=== PATIENT | female | born 1965 | race African-American/Black ===

== ENCOUNTER 2020-05-01 00:16 | Emergency (ER) | payer MEDICAID, OTHER ==
[~2020-05-01] VITALS: Ht 160 cm; Wt 65.9 kg
[~2020-05-01 00:16] MED LIST: ASPI-556 PO; EFAV1TAB2; EFAV1TAB2 PO; FENO145T PO; FLUO20CA36 PO; FLUT1DIS4 IH; GABA-1181 PO; METF1000 PO; PIOG45TA4 PO; QUET150T2 PO
[2020-05-01 02:02] VITALS: BP 161/94
[2020-05-01 02:11] LABS: BASOPHILS % (AUTO) 0.9 % (0.0-2.0); EOSINOPHILS % (AUTO) 1.4 % (1.0-6.0); HEMATOCRIT 40.1 % (36-46); HEMOGLOBIN 13.3 g/dL (12.0-16.0); LYMPHOCYTES # (AUTO) 1.2 K/uL (1.0-4.8); LYMPHOCYTES % (AUTO) 27.4 % (22.0-44.0); MEAN CORPUSCULAR HEMOGLOBIN 30.1 pg (26.0-34.0); MEAN CORPUSCULAR HGB CONC 33.3 G/dL (31.0-37.0); MEAN CORPUSCULAR VOLUME 90 fL (80-100); MONOCYTES # (AUTO) 0.3 K/uL (0.1-1.0); MONOCYTES % (AUTO) 7.1 % (2.0-9.0); NEUTROPHILS # (AUTO) 2.7 K/uL (1.8-7.7); NEUTROPHILS % (AUTO) 63.2 % (40.0-70.0); PLATELET COUNT (AUTO) 234 K/uL (150-450); RED BLOOD CELL COUNT(AUTO) 4.44 MIL/uL (4.00-5.20); RED CELL DISTRIBUTION WIDTH 12.6 % (11.5-14.5)
[2020-05-01 02:19] LABS: ANION GAP 10 mmol/L (8-16); CALCIUM, TOTAL 8.9 mg/dL (8.8-10.5); CARBON DIOXIDE 26 mmol/L (22-29); CHLORIDE 106 mmol/L (98-107); CREATININE 1.07 mg/dL (0.60-1.30); GLOMERULAR FILTR. RATE CALC > 60 mL/min (>60); GLUCOSE,RANDOM 265 mg/dL (70-110); POTASSIUM 3.7 mmol/L (3.5-5.1); SODIUM SERUM 142 mmol/L (136-145); UREA NITROGEN, BLOOD 13 mg/dL (7-18)
[2020-05-01 02:25] LABS: ALANINE AMINOTRANSFERASE 25 U/L (12-78); ALBUMIN 3.4 g/dL (3.4-5.0); ALKALINE PHOSPHATASE 91 U/L (46-116); ASPARTATE AMINOTRANSFERASE 18 U/L (15-37); BILIRUBIN,TOTAL 0.4 mg/dL (0.1-1.0)
== END 2020-05-01 02:55 | disposition home or self-care (01) ==
LOC: EMS 00:18
DX: Z20.822 Contact with and (suspected) exposure to COVID-19 (principal); J45.909 Unspecified asthma, uncomplicated; E11.9 Type 2 diabetes mellitus without complications; F17.210 Nicotine dependence, cigarettes, uncomplicated; Z79.899 Other long term (current) drug therapy; Z79.82 Long term (current) use of aspirin
CPT/HCPCS: 36415; 80053; 82962; 85025; 99283; U0003

== ENCOUNTER 2020-12-11 10:45 | Observation (INO) | payer OTHER ==
[~2020-12-11] VITALS: Ht 160 cm; Wt 56.0 kg
[2020-12-11] MEDS ORDERED: PARO-38 PO (11:01)
[2020-12-11] MEDS ORDERED: SODIUM CHLORIDE 0.9% 1,000 ML IV ONE ×2 (11:15→15:00)
[2020-12-11 11:49] LABS: BASOPHILS % (AUTO) 1.2 % (0.0-2.0); EOSINOPHILS % (AUTO) 0.5 % (1.0-6.0); HEMATOCRIT 50.2 % (36-46); HEMOGLOBIN 15.9 g/dL (12.0-16.0); LYMPHOCYTES % (AUTO) 27.4 % (22.0-44.0); MEAN CORPUSCULAR HEMOGLOBIN 30.9 pg (26.0-34.0); MEAN CORPUSCULAR HGB CONC 31.7 G/dL (31.0-37.0); MEAN CORPUSCULAR VOLUME 98 fL (80-100); MONOCYTES # (AUTO) 0.4 K/uL (0.1-1.0); NEUTROPHILS # (AUTO) 2.1 K/uL (1.8-7.7); NEUTROPHILS % (AUTO) 60.9 % (40.0-70.0); PLATELET COUNT (AUTO) 194 K/uL (150-450); RED BLOOD CELL COUNT(AUTO) 5.15 MIL/uL (4.00-5.20); RED CELL DISTRIBUTION WIDTH 13.3 % (11.5-14.5)
[2020-12-11 12:06] LABS: COVID AG,FIA SOURCE NASOPHARYNGEAL
[2020-12-11 13:29] LABS: ANION GAP 3 mmol/L (8-16); CARBON DIOXIDE 29 mmol/L (22-29); CHLORIDE 94 mmol/L (98-107); CREATININE 1.25 mg/dL (0.60-1.30); GLOMERULAR FILTR. RATE CALC 54 mL/min (>60); POTASSIUM 4.6 mmol/L (3.5-5.1); SODIUM SERUM 126 mmol/L (136-145); UREA NITROGEN, BLOOD 10 mg/dL (7-18)
[2020-12-11 13:30] LABS: CALCIUM, TOTAL 8.7 mg/dL (8.8-10.5)
[2020-12-11 13:38] LABS: ALANINE AMINOTRANSFERASE 72 U/L (12-78); ALKALINE PHOSPHATASE 133 U/L (46-116); ASPARTATE AMINOTRANSFERASE 41 U/L (15-37); BILIRUBIN,TOTAL 0.4 mg/dL (0.1-1.0); CREATINE KINASE, TOTAL ONLY 64 U/L (26-192); HCG,QUANTITATIVE 6 mIU/mL (0-6); PHOSPHORUS 3.5 mg/dL (2.5-4.9); TOTAL PROTEIN, SERUM 6.8 g/dL (6.4-8.2)
[2020-12-11 13:45] LABS: GLUCOSE,RANDOM 778 mg/dL (70-110)
[2020-12-11] MEDS ORDERED: INSULIN REGULAR, HUMAN 100 UNITS/ML IVP ONE (14:00)
[2020-12-11] MEDS ORDERED: MAGNESIUM SULFATE 2 GM/WATER 50 ML IV ONE (14:00)
[2020-12-11 14:05] LABS: ACETONE,BLOOD NEGATIVE (NEGATIVE)
[2020-12-11] MEDS ORDERED: ACETAMINOPHEN 325 MG TABLET PO PRN ×2 (14:15→15:00)
[2020-12-11] MEDS ORDERED: 0.9% SODIUM CHLORIDE 10 ML SYRINGE IVP PRN (14:15)
[2020-12-11] MEDS ORDERED: ONDANSETRON HCL 4 MG/2 ML VIAL IVP PRN ×2 (14:15→15:00)
[2020-12-11 14:34] LABS: APPEARANCE,URINE CLEAR (CLEAR); BILIRUBIN,URINE NEGATIVE (NEGATIVE); GLUCOSE, URINE (UA) >=1000 mg/dL (NEGATIVE); KETONES,URINE NEGATIVE (NEGATIVE); LEUKOCYTE ESTERASE ,URINE NEGATIVE (NEGATIVE); NITRATE,URINE NEGATIVE (NEGATIVE); OCCULT BLOOD,URINE NEGATIVE (NEGATIVE); PH,URINE 6.5 (5.0-8.0); PROTEIN,URINE NEGATIVE (NEGATIVE); UROBILINOGEN,URINE 0.2 mg/dL (<=1.0)
[2020-12-11 14:39] LABS: AMPHET/METH SCREEN,URINE NEGATIVE (NEGATIVE); BARBITURATE SCREEN, URINE NEGATIVE (NEGATIVE); BENZODIAZEPINES SCREEN,URINE NEGATIVE (NEGATIVE); CANNABINOID SCREEN,URINE NEGATIVE (NEGATIVE); COCAINE SCREEN,URINE NEGATIVE (NEGATIVE); METHADONE SCREEN, URINE NEGATIVE (NEGATIVE); OPIATE SCREEN,URINE NEGATIVE (NEGATIVE)
[2020-12-11 14:40] LABS: PHENCYCLIDINE SCREEN,URINE NEGATIVE (NEGATIVE)
[2020-12-11 14:47] LABS: BACTERIA,URINE None Seen /HPF (None Seen); RBC,URINE None Seen /HPF (0-2); SQUAMOUS EPITHELIAL CELL,UR None Seen /LPF (None Seen); WBC,URINE None Seen /HPF (0-5)
[2020-12-11] MEDS ORDERED: MAGNESIUM HYDROXIDE SUSPENSION 30 ML UDCUP PO PRN (15:00)
[2020-12-11] MEDS ORDERED: MORPHINE SULFATE 2 MG/ML SYRINGE IVP PRN (15:00)
[2020-12-11] MEDS ORDERED: ZOLPIDEM TARTRATE 5 MG TABLET PO PRN (15:00)
[2020-12-11] MEDS ORDERED: HYDROCODONE/ACETAMINOPHEN 5-325 MG TABLET PO PRN (15:00)
[2020-12-11] MEDS ORDERED: BISACODYL 10 MG RECTAL RECTAL SUPPOSITORY PR PRN (15:00)
[2020-12-11] MEDS: HEPARIN SODIUM,PORCINE 5,000 UNITS/ML VIAL SQ SCH ×2 (15:04→23:57)
[2020-12-11 15:29] LABS: GLUCOMETER DEV NAME(LOC) ERT.5; GLUCOSE,POINT OF CARE 442 MG/DL (70-110)
[2020-12-11] MEDS ORDERED: DEXTROSE 50%-WATER 25 GM/50 ML SYRINGE IVP PRN (15:45)
[2020-12-11] MEDS ORDERED: INSULIN REGULAR, HUMAN 100 UNITS/ML SQ ONE (16:15)
[2020-12-11] MEDS: MetFORMIN HCL 500 MG TABLET PO SCH ×3 (17:30→19:01)
[2020-12-11 17:49] LABS: GLUCOSE,POINT OF CARE 462 MG/DL (70-110)
[2020-12-11 18:14] LABS: GLUCOMETER DEV NAME(LOC) ERT.5; GLUCOSE,POINT OF CARE 332 MG/DL (70-110)
[2020-12-11 18:49] VITALS: BP 140/90
[2020-12-11] MEDS: INSULIN LISPRO 100 UNITS/ML SQ PRN (18:59)
[2020-12-11 19:14] LABS: GLUCOMETER DEV NAME(LOC) 6S.1; GLUCOSE,POINT OF CARE 329 MG/DL (70-110)
[2020-12-11 19:50] VITALS: BP 141/96
[2020-12-11] MEDS: DOCUSATE SODIUM 100 MG CAPSULE PO SCH (20:18)
[2020-12-11] MEDS: QUEtiapine FUMARATE 50 MG ER TABLET PO SCH (20:19)
[2020-12-11] MEDS: FENOFIBRATE 48 MG TABLET PO SCH (20:19)
[2020-12-11] MEDS ORDERED: MAGNESIUM SULFATE 2 GM/WATER 50 ML IV PRN (20:45)
[2020-12-11] MEDS ORDERED: MAGNESIUM OXIDE 400 MG TABLET PO PRN (20:45)
[2020-12-11] MEDS ORDERED: MAGNESIUM SULFATE 4 GM/WATER 100 ML IV PRN (20:45)
[2020-12-11] MEDS ORDERED: PNEUMOCOCCAL VACCINE POLYVALENT 0.5 ML VIAL [PPSV23] IM. ONE (23:00)
[2020-12-12] MEDS: INSULIN LISPRO 100 UNITS/ML SQ PRN ×3 (05:13→20:02)
[2020-12-12 06:45] LABS: GLUCOMETER DEV NAME(LOC) 6S.1; GLUCOSE,POINT OF CARE 327 MG/DL (70-110)
[2020-12-12 06:45] LABS: GLUCOMETER DEV NAME(LOC) 6N.1; GLUCOSE,POINT OF CARE 438 MG/DL (70-110)
[2020-12-12 08:23] VITALS: BP 98/58
[2020-12-12] MEDS: PIOGLITAZONE HCL 45 MG TABLET PO SCH (08:29)
[2020-12-12] MEDS: PARoxetine HCL 20 MG TABLET PO SCH (08:29)
[2020-12-12] MEDS: GABAPENTIN 300 MG CAPSULE PO SCH (08:29)
[2020-12-12] MEDS: HEPARIN SODIUM,PORCINE 5,000 UNITS/ML VIAL SQ SCH ×3 (08:30→23:33)
[2020-12-12] MEDS: MetFORMIN HCL 500 MG TABLET PO SCH ×2 (08:30→17:22)
[2020-12-12] MEDS: PANTOPRAZOLE SODIUM 40 MG DR TABLET PO SCH (08:30)
[2020-12-12] MEDS: DOCUSATE SODIUM 100 MG CAPSULE PO SCH ×2 (08:30→20:01)
[2020-12-12] MEDS: ASPIRIN 81 MG DR TABLET PO SCH (08:30)
[2020-12-12] MEDS: TENOFOVIR PO SCH (09:34)
[2020-12-12] MEDS: EMTRICITAB PO SCH (09:34)
[2020-12-12] MEDS: EFAVIRENZ PO SCH (09:34)
[2020-12-12] MEDS ORDERED: INSULIN LISPRO 100 UNITS/ML SQ ONE (12:30)
[2020-12-12 13:33] LABS: GLUCOMETER DEV NAME(LOC) 6N.1; GLUCOSE,POINT OF CARE 446 MG/DL (70-110)
[2020-12-12 15:25] VITALS: BP 138/89
[2020-12-12 18:30] LABS: GLUCOMETER DEV NAME(LOC) 6N.1; GLUCOSE,POINT OF CARE 212 MG/DL (70-110)
[2020-12-12] MEDS: QUEtiapine FUMARATE 50 MG ER TABLET PO SCH (20:02)
[2020-12-12] MEDS: FENOFIBRATE 48 MG TABLET PO SCH (20:02)
[2020-12-12] MEDS: INSULIN GLARGINE,HUM.REC.ANLOG 100 UNITS/ML SQ SCH (20:03)
[2020-12-12 20:10] LABS: GLUCOMETER DEV NAME(LOC) 6S.1; GLUCOSE,POINT OF CARE 166 MG/DL (70-110)
[2020-12-12 20:20] VITALS: BP 154/85
[2020-12-13 05:06] VITALS: BP 139/98
[2020-12-13 05:50] LABS: GLUCOMETER DEV NAME(LOC) 6S.1; GLUCOSE,POINT OF CARE 233 MG/DL (70-110)
[2020-12-13] MEDS: INSULIN LISPRO 100 UNITS/ML SQ PRN ×3 (06:01→17:43)
[2020-12-13 06:32] LABS: BASOPHILS % (AUTO) 0.6 % (0.0-2.0); EOSINOPHILS % (AUTO) 0.4 % (1.0-6.0); HEMATOCRIT 43.3 % (36-46); HEMOGLOBIN 14.3 g/dL (12.0-16.0); LYMPHOCYTES # (AUTO) 0.7 K/uL (1.0-4.8); LYMPHOCYTES % (AUTO) 24.8 % (22.0-44.0); MEAN CORPUSCULAR HEMOGLOBIN 30.4 pg (26.0-34.0); MEAN CORPUSCULAR HGB CONC 33.1 G/dL (31.0-37.0); MEAN CORPUSCULAR VOLUME 92 fL (80-100); MONOCYTES # (AUTO) 0.3 K/uL (0.1-1.0); MONOCYTES % (AUTO) 11.3 % (2.0-9.0); NEUTROPHILS # (AUTO) 1.8 K/uL (1.8-7.7); NEUTROPHILS % (AUTO) 62.9 % (40.0-70.0); PLATELET COUNT (AUTO) 198 K/uL (150-450); RED BLOOD CELL COUNT(AUTO) 4.71 MIL/uL (4.00-5.20); RED CELL DISTRIBUTION WIDTH 12.8 % (11.5-14.5)
[2020-12-13 07:21] LABS: CALCIUM, TOTAL 8.2 mg/dL (8.8-10.5); CHOL/HDL RATIO 3.6 (3.9-5.7); CREATININE 1.18 mg/dL (0.60-1.30); POTASSIUM 3.8 mmol/L (3.5-5.1)
[2020-12-13] MEDS: HEPARIN SODIUM,PORCINE 5,000 UNITS/ML VIAL SQ SCH ×3 (08:00→16:00)
[2020-12-13 08:15] VITALS: BP 132/89
[2020-12-13] MEDS: PIOGLITAZONE HCL 45 MG TABLET PO SCH (08:28)
[2020-12-13] MEDS: ASPIRIN 81 MG DR TABLET PO SCH (08:28)
[2020-12-13] MEDS: PARoxetine HCL 20 MG TABLET PO SCH (08:28)
[2020-12-13] MEDS: MetFORMIN HCL 500 MG TABLET PO SCH ×2 (08:28→17:44)
[2020-12-13] MEDS: GABAPENTIN 300 MG CAPSULE PO SCH (08:29)
[2020-12-13] MEDS: PANTOPRAZOLE SODIUM 40 MG DR TABLET PO SCH (08:30)
[2020-12-13] MEDS: DOCUSATE SODIUM 100 MG CAPSULE PO SCH (08:30)
[2020-12-13] MEDS: INSULIN GLARGINE,HUM.REC.ANLOG 100 UNITS/ML SQ SCH (08:41)
[2020-12-13] MEDS: EFAVIRENZ PO SCH (09:22)
[2020-12-13] MEDS: EMTRICITAB PO SCH (09:22)
[2020-12-13] MEDS: TENOFOVIR PO SCH (09:22)
[2020-12-13] MEDS ORDERED: INSLAN SQ (11:14)
[2020-12-13 18:59] LABS: GLUCOMETER DEV NAME(LOC) 6N.1; GLUCOSE,POINT OF CARE 286 MG/DL (70-110)
[2020-12-13 18:59] LABS: GLUCOMETER DEV NAME(LOC) 6N.1; GLUCOSE,POINT OF CARE 333 MG/DL (70-110)
== END 2020-12-13 20:05 | disposition home or self-care (01) ==
LOC: EMS 10:48 → 6N 17:35 → INTOOBSV 17:35
PROVIDERS: ADMIT Internal Medicine; ATTEND Internal Medicine
DX: E11.00 Type 2 diabetes mellitus with hyperosmolarity without nonketotic hyperglycemic-hyperosmolar coma (NKHHC) (principal); E87.1 Hypo-osmolality and hyponatremia; D72.819 Decreased white blood cell count, unspecified; B20 Human immunodeficiency virus [HIV] disease; E78.5 Hyperlipidemia, unspecified; J45.909 Unspecified asthma, uncomplicated; R06.02 Shortness of breath; Z79.4 Long term (current) use of insulin; Z87.891 Personal history of nicotine dependence; Z91.14 Patient's other noncompliance with medication regimen; Z79.899 Other long term (current) drug therapy; Z79.01 Long term (current) use of anticoagulants; Z20.822 Contact with and (suspected) exposure to COVID-19
CPT/HCPCS: 36415 ×2; 71045; 80048; 80053; 80061; 80307; 81001; 82009; 82550; 82962 ×3; 83036; 83735; 83880; 84100; 84484; 84702; 85025 ×2; 87426; 93005; 96361; 96365; 96366; 96372 ×3; 96375; 99219 ×3; 99291; G0480; J1644 ×3; J1815 ×3; J3475; J7030; U0003; 93366